=== PATIENT | male | born 1965 | race Caucasian/White ===

== ENCOUNTER 2021-10-01 12:44 | Emergency (ER) | payer BC ==
[2021-10-01] MEDS ORDERED: Ketorolac Tromethamine 30 MG/ML VIAL ONE (13:47)
[2021-10-01] MEDS ORDERED: Cyclobenzaprine 10 MG TAB ONE (13:47)
== END 2021-10-01 14:57 | disposition home or self-care (01) ==
LOC: CSHERS 12:44
DX: M25.511 Pain in right shoulder (principal); I10 Essential (primary) hypertension
CPT/HCPCS: 96372; J1885

== ENCOUNTER 2024-04-01 15:07 | Outpatient (CLI) | payer OTHER | END 2024-04-01 15:08 | disposition home or self-care (01) | LOC: CSHCP 15:07 | PROVIDERS: ATTEND Internal Medicine Critical Care Medicine | DX: J84.112 Idiopathic pulmonary fibrosis (principal); J98.4 Other disorders of lung | CPT/HCPCS: 94010; 94726; 94729; 94760 ==

== ENCOUNTER 2024-10-14 11:31 | Emergency (ER) | payer OTHER ==
[2024-10-14] MEDS ORDERED: Acetaminophen 325 MG TAB ONE (12:10)
== END 2024-10-14 12:30 | disposition home or self-care (01) ==
LOC: CSHERS 11:31
DX: R07.2 Precordial pain (principal); F17.210 Nicotine dependence, cigarettes, uncomplicated; I10 Essential (primary) hypertension
CPT/HCPCS: 71046; 93005; 93010